=== PATIENT | female | born 1985 | race Caucasian/White ===

== ENCOUNTER → 2016-09-13 | Outpatient (CLI) | payer OTHER ==
[~2016-09-13] MED LIST: AMOXICILLIN500 M2 PO; AMOXICILLIN500 M3 PO; AMOXICILLIN500 MG PO; ANTIBIOTIC O500 U/GM TP; APAP/HYDROCODONE5 ML PO; AUGMENTIN 875 M1 TAB PO; AUGMENTIN 875875 MG PO; BACTRIM DS 8001 TA1 PO; BACTRIM DS 8001 TAB PO; BENTYL10 MG PO; CELEXA PO; CELEXA10 MG PO; CELEXA20 MG PO; CEPHALEXIN500 M1 PO; CEPHALEXIN500 MG PO; CIPRO250 MG PO; CIPROFLOXACIN500 MG PO; CLARITIN-D 12 H1 TAB PO; CLARITIN10 MG PO; DECADRON4 MG PO; DIFLUCAN150 MG PO; DOXYCYCLINE HY100 M3 PO; FLAGYL500 MG PO; FLEXERIL10 MG PO; FLONASE 0.05% 121 EA NAS; FLONASE ALLERG9.9 ML NAS; HYDROCODONE BIT1 T11 PO; HYDROXYZINE PAM50 MG PO; KEFLEX500 M1 PO; KEFLEX500 MG PO; KEFTAB500 MG PO; LEVAQUIN750 M1 PO; LEVOFLOXACIN500 MG PO; LOMOTIL 0.025 M1 TA1 PO; MACROBID100 M1 PO; MIRALAX POWDER17 G1 PO; MOTRIN600 MG PO; MOTRIN800 MG; MOTRIN800 MG PO; Motrin,Rufen400 MG PO; Motrin,Rufen800 MG PO; NAPROSYN500 MG PO; NO DAILY MEDS; NORCO 325 MG-51 TAB PO; NORCO 5-325 TA1 EACH PO; OMEPRAZOLE MAGN20 MG PO; PARAFON FORTE500 MG PO; PEN-VK500 MG PO; PEPCID20 MG PO; PERCOCET 325 MG1 TA7; PHENERGAN W/ DE30 ML PO; PREDNICOT10 MG PO; PREDNICOT20 MG PO; PREDNISONE10 MG PO; PREVACID30 M1 PO; PRILOSEC20 M1 PO; PRILOSEC20 M2 PO; PROAIR HFA8.5 GM INH; PROVENTIL0.09 MG/AC IH; PYRIDIUM200 M1 PO; PYRIDIUM200 MG PO; ROBITUSSIN AC 110 ML PO; Ranitidine Hyd150 MG PO; SERTRALINE HYDR50 MG PO; TESSALON PERLE200 MG PO; TOBREX OPHTH S2.5 ML OPH; TRAMADOL50 MG PO; TYLENOL325 M1 PO; ULTRAM50 MG PO; VIBRAMYCIN100 MG PO; VOLTAREN50 M1 PO; XANAX0.25 MG PO; ZANTAC 150150 MG PO; ZITHROMAX Z PA250 MG PO; ZITHROMAX Z-PA250 MG PO; ZOFRAN ODT4 MG SL; ZOFRAN4 MG PO; ZOLOFT50 MG PO; ZYRTEC10 MG PO; Zofran4 MG PO
[2016-09-13 11:01] LABS: BASO % 0.5 % (0.0-1.0); EOS # 0.1 10*3/uL (0.0-0.4); EOS % 1.5 % (1.0-4.0); HEMATOCRIT 39.7 % (37.0-47.0); HEMOGLOBIN 13.5 g/dl (12.0-16.0); LYMPH # 1.2 10*3/uL (1.3-4.4); LYMPH % 30.2 % (27.0-41.0); MEAN CELL VOLUME 89.4 fl (81.0-99.0); MEAN CORPUSCULAR HGB 30.4 pg (27.0-31.0); MEAN PLATELET VOLUME 10.5 fl (9.6-12.3); MONO # 0.3 10*3/uL (0.1-1.0); NEUT # 2.4 10*3/uL (2.3-7.9); NEUT % 59.6 % (47.0-73.0); PLATELET COUNT AUTOMATED 184 10*3/uL (130-400); RED BLOOD COUNT 4.44 10*6/uL (4.10-5.10); RED CELL DISTRI WIDTH 12.2 % (0-14.5)
== END | disposition home or self-care (01) ==
LOC: LAB 09:24
PROVIDERS: Obstetrics & Gynecology
DX: D06.9 Carcinoma in situ of cervix, unspecified (principal)

== ENCOUNTER → 2016-09-19 | Day surgery (SDC) | payer OTHER ==
[~2016-09-19] VITALS: Ht 157.4 cm; Wt 72.6 kg
--- NOTE | ~2016-09-19 | O ---
[place], [place] OPERATIVE NOTE NAME: BHAVESH SPRING UNIT #: [id number] ROOM: DOCTOR: INGE LUND MD BIRTHDATE: [birth year] DOS: 09/19/2016 PREOPERATIVE DIAGNOSIS: Ectocervical cervical intraepithelial neoplasia 3. POSTOPERATIVE DIAGNOSIS: Ectocervical cervical intraepithelial neoplasia 3. OPERATION: Cold knife conization of the ectocervix cut at 12 o'clock. SURGEON: Inge Lund MD ANESTHESIA: MAC. ESTIMATED BLOOD LOSS: Minimal. REPLACEMENTS: IV fluids. COMPLICATIONS: There were no complications. CONDITION: The patient's condition to recovery was stable. OPERATIVE SUMMARY: The patient was taken to the operating room in supine position, MAC anesthesia, lithotomy position, prepped and draped in routine manner. Cervix was grasped, first injected in a circumferential manner with 1% lidocaine with epinephrine, followed by placement of [id number] 0 chromic sutures at 3 and 9 o'clock respectively. At that point, we then removed the cone-shaped portion of the ectocervix and cut at 12 o'clock. Once that was completed, Sturmdorf sutures were placed at 6 and 12 o'clock respectively. Good hemostasis was noted. A small plug of Surgicel dipped in Monsel's solution was placed in the cervical defect. The patient was cleaned off, taken out of lithotomy position, awakened and transferred to recovery in stable condition with stable vital signs, good hemostasis, stable sponge and instrument count. INGE LUND MD CM:OPRECORD:OPERATIVE NOTE [id number] SPEEDY LUND MD 09/21/16 1046 interface
--- NOTE | ~2016-09-19 | WRIGHTHP ---
[place], [place] PATIENT HISTORY AND PHYSICAL EXAM NAME: BHAVESH SPRING [facility] #: [id number] UNIT #: [id number] ROOM: DOCTOR: INGE ORTEGA MD BIRTHDATE: [birth year] DOS: DATE OF SURGERY: 09/19/2016. HISTORY OF PRESENT ILLNESS: A 30-year-old white female, 3, para 3, AB 0, status post tubal ligation, whose last period is questionable because she is on Depo-Provera due to extreme hypermenorrhea. She was seen on 08/09/2016 having had a recent colposcopy directed biopsy of the cervix at 12 o'clock consistent with LENARD 3. The patient was here to discuss cold knife conization as therapy because she had had a biopsy 6 months ago was consistent with LENARD 2. The patient also states that her mother is suffering from some form of metastatic cancer, and the patient thinks that it is metastatic from the cervix. As I said, the patient is having significant hypermenorrhea and actually desires hysterectomy, but I did advise the patient that we have to do the cold knife conization first to be sure that there is no invasive disease in the cervix and if there is no invasive disease and the patient would like to proceed at a later date with the LAVH or vaginal hysterectomy, I would be happy to accommodate that. Therefore, the risks, benefits, indications, potential complications, and alternatives of a cold knife conization of the ectocervix were given, understanding stated, and she did sign a consent. PAST MEDICAL HISTORY: Reveals a history of depression, history of PID, bacterial vaginosis infections, anxiety, suicidal tendencies, and interstitial cystitis. She also has obviously had the abnormal Paps in the past. She is status post tubal ligation. She has had 3 pregnancies and 3 vaginal deliveries. She has also had a cholecystectomy as well as a tubal. SOCIAL HISTORY: The patient does not smoke or drink. MEDICATIONS: She is at present not taking any medications. ALLERGIES: She does state an allergy to ASPIRIN, IVP DYE, TRAMADOL, and PREVACID. REVIEW OF SYSTEMS: The patient's review of system does indicate that the patient had a past history of drug abuse and alcohol abuse. She states that she has been clean for some time. The patient's 3 children do live with relatives. FAMILY HISTORY: Reveals her father with heart disease. Mother with the cancer either uterine or cervical cancer as we discussed above. Maternal grandfather with heart disease, diabetes and hypertension. Maternal grandmother is from hypertension and diabetes. PHYSICAL EXAMINATION: GENERAL: Reveals pleasant white female. She is 5 feet, 245 pounds, BMI is 26.5. VITAL SIGNS: Blood pressure is 122/78, and she is in no significant distress. HEENT: Grossly intact. NECK: Grossly intact. LUNGS: Grossly intact. [place], [place] PATIENT HISTORY AND PHYSICAL EXAM NAME: BHAVESH SPRING UNIT #: [id number] ROOM: DOCTOR: INGE ORTEGA MD BIRTHDATE: [birth year] CARDIAC: Grossly intact. BREAST: Grossly intact. ABDOMEN: Grossly intact. EXTREMITIES: Grossly intact. NEUROLOGIC: Grossly intact. GENITOURINARY: External genitalia, vagina normal. Cervix noted above and the last Pap was consistent with a low-grade NICOLAS, but serial biopsies have been discussed above. The uterus is anteverted and anteflexed, overall normal size and configuration, nontender, mobile. Adnexa negative. RECTAL: Deferred. ASSESSMENT: 1. The patient with progressively worsening cervical dysplasia, now with LENARD 3 at 12 o'clock position. 2. She has a family history of her mother having either metastatic cervical cancer or uterine cancer. 3. The patient has hypermenorrhea and is having to use Depo-Provera to try to help control this and this is only partially effective in a patient who has already had a tubal ligation. To that end, the patient on 09/19/2016 will undergo cold knife conization of the ectocervix to rule out invasion of any sort in the cervix and if this is negative then she may consider a total vaginal hysterectomy or an laparoscopically-assisted vaginal hysterectomy for reasons of the cervical disease as well as the extreme hypermenorrhea, status post tubal ligation. INGE ORTEGA MD CM:HISPHYS:PATIENT HISTORY AND PHYSICAL EXAMINATION [id number] INGE ORTEGA MD 09/15/16 0757 interface
[2016-09-19 09:20] VITALS: BP 115/75
[2016-09-19 11:10] VITALS: BP 104/57
[2016-09-19 11:24] VITALS: BP 108/70
[2016-09-19 11:45] VITALS: BP 109/78
== END | disposition home or self-care (01) ==
LOC: SDC 09-13 09:30
DX: D06.1 Carcinoma in situ of exocervix (principal); Z98.51 Tubal ligation status; F32.9 Major depressive disorder, single episode, unspecified; F41.9 Anxiety disorder, unspecified; R45.851 Suicidal ideations; Z82.49 Family history of ischemic heart disease and other diseases of the circulatory system; Z80.9 Family history of malignant neoplasm, unspecified; Z83.3 Family history of diabetes mellitus; Z82.3 Family history of stroke

== ENCOUNTER 2016-09-25 16:17 | Emergency (ER) | payer OTHER ==
[~2016-09-25] VITALS: Ht 157.4 cm; Wt 72.6 kg
[~2016-09-25 16:17] MED LIST changes: -LEVAQUIN750 M1 PO
[2016-09-25 16:47] LABS: BASO % 0.2 % (0.0-1.0); EOS # 0.1 10*3/uL (0.0-0.4); EOS % 1.3 % (1.0-4.0); HEMATOCRIT 40.7 % (37.0-47.0); HEMOGLOBIN 13.6 g/dl (12.0-16.0); LYMPH # 0.8 10*3/uL (1.3-4.4); LYMPH % 15.4 % (27.0-41.0); MEAN CELL VOLUME 88.9 fl (81.0-99.0); MEAN CORPUSCULAR HGB 29.7 pg (27.0-31.0); MEAN CORPUSCULAR HGB CONC 33.4 g/dl (33.0-37.0); MEAN PLATELET VOLUME 9.8 fl (9.6-12.3); MONO # 0.5 10*3/uL (0.1-1.0); MONO % 8.3 % (3.0-9.0); NEUT # 4.1 10*3/uL (2.3-7.9); NEUT % 74.6 % (47.0-73.0); PLATELET COUNT AUTOMATED 192 10*3/uL (130-400); RED BLOOD COUNT 4.58 10*6/uL (4.10-5.10); RED CELL DISTRI WIDTH 12.4 % (0-14.5); WHITE BLOOD COUNT 5.4 10*3/uL (4.8-10.8)
[2016-09-25 17:02] LABS: BILIRUBIN NEGATIVE (NEGATIVE); BLOOD 3+ (NEGATIVE); CLARITY SL CLOUDY (CLEAR); COLOR YELLOW (YELLOW); GLUCOSE NEGATIVE (NEGATIVE); KETONE TRACE (NEGATIVE); LEUKO ESTERASE 1+ (NEGATIVE); NITRITE NEGATIVE (NEGATIVE); PH 5.5 (5.0-9.0); PROTEIN TRACE (NEGATIVE); SPECIFIC GRAVITY >= 1.030 (1.005-1.030)
[2016-09-25 17:04] LABS: ALBUMIN 3.6 gm/dl (3.1-4.5); ALKALINE PHOSPHATASE 74 U/L (45-117); BILIRUBIN, TOTAL 0.5 mg/dl (0.2-1.0); BUN 13 mg/dl (7-24); CARBON DIOXIDE 29 mmol/L (21-32); CHLORIDE 103 mmol/L (98-107); EST GLOM FILT AFRICAN AMERICAN > 60 ml/min; GLUCOSE 108 mg/dL (65-99); POTASSIUM 4.1 mmol/L (3.5-5.1); SGOT/AST 28 IU/L (3-35); SGPT/ALT 85 U/L (12-78); SODIUM 140 mmol/L (136-145); TOTAL PROTEIN 7.2 gm/dL (6.4-8.2)
[2016-09-25 17:10] LABS: URINE REFLEX COMMENT YES (NO)
[2016-09-25] MEDS ORDERED: LEVAQUIN750 M1 PO (17:20)
[2016-09-25 21:27] LABS: BACTERIA 2+; EPITHELIAL CELLS TNTC; RBC TNTC rbc/hpf (0-2); WBC 0-2 wbc/hpf (0-5)
== END 2016-09-25 18:03 | disposition home or self-care (01) ==
LOC: ED 16:17
PROVIDERS: Registered Nurse
DX: N76.0 Acute vaginitis (principal); N30.01 Acute cystitis with hematuria; R79.89 Other specified abnormal findings of blood chemistry; Z88.6 Allergy status to analgesic agent; Z88.1 Allergy status to other antibiotic agents; Z88.8 Allergy status to other drugs, medicaments and biological substances; Z91.041 Radiographic dye allergy status

== ENCOUNTER 2016-12-27 20:03 | Emergency (ER) | payer OTHER ==
[~2016-12-27] VITALS: Ht 157.4 cm; Wt 72.6 kg
[~2016-12-27 20:03] MED LIST changes: +LEVAQUIN750 M1 PO
[2016-12-27] MEDS ORDERED: ORPHENADRINE C100 M1 PO (22:06)
== END 2016-12-27 22:20 | disposition home or self-care (01) ==
LOC: ED 20:03
DX: M54.12 Radiculopathy, cervical region (principal); Z88.1 Allergy status to other antibiotic agents; Z88.6 Allergy status to analgesic agent; Z88.8 Allergy status to other drugs, medicaments and biological substances; Z91.041 Radiographic dye allergy status

== ENCOUNTER 2017-05-20 11:26 | Emergency (ER) | payer OTHER ==
[~2017-05-20] VITALS: Ht 157.4 cm; Wt 72.6 kg
[~2017-05-20 11:26] MED LIST changes: +ORPHENADRINE C100 M1 PO
[2017-05-20] MEDS ORDERED: FLONASE ALLERG9.9 ML NAS (11:51)
[2017-05-20] MEDS ORDERED: CLARITIN10 MG PO (11:51)
[2017-05-20] MEDS ORDERED: ROBITUSSIN DM 105 ML PO (11:51)
[2017-05-20] MEDS ORDERED: PREDNISONE10 MG PO (11:51)
== END 2017-05-20 13:09 | disposition home or self-care (01) ==
LOC: ED 11:26
DX: B34.9 Viral infection, unspecified (principal); K21.9 Gastro-esophageal reflux disease without esophagitis; R03.0 Elevated blood-pressure reading, without diagnosis of hypertension; Z90.49 Acquired absence of other specified parts of digestive tract; Z98.51 Tubal ligation status; Z91.041 Radiographic dye allergy status; Z88.6 Allergy status to analgesic agent; Z88.3 Allergy status to other anti-infective agents; Z88.8 Allergy status to other drugs, medicaments and biological substances

== ENCOUNTER 2017-05-31 00:20 | Emergency (ER) | payer OTHER ==
[~2017-05-31] VITALS: Ht 157.4 cm; Wt 72.6 kg
[~2017-05-31 00:20] MED LIST changes: +ROBITUSSIN DM 105 ML PO
[2017-05-31 01:04] LABS: BASO % 0.2 % (0.0-1.0); EOS # 0.1 10*3/uL (0.0-0.4); HEMATOCRIT 38.3 % (37.0-47.0); LYMPH # 1.9 10*3/uL (1.3-4.4); LYMPH % 21.7 % (27.0-41.0); MEAN CELL VOLUME 88.7 fl (81.0-99.0); MEAN CORPUSCULAR HGB 30.1 pg (27.0-31.0); MEAN CORPUSCULAR HGB CONC 33.9 g/dl (33.0-37.0); MEAN PLATELET VOLUME 9.5 fl (9.6-12.3); MONO # 0.8 10*3/uL (0.1-1.0); MONO % 8.5 % (3.0-9.0); NEUT # 6.1 10*3/uL (2.3-7.9); NEUT % 68.3 % (47.0-73.0); PLATELET COUNT AUTOMATED 223 10*3/uL (130-400); RED BLOOD COUNT 4.32 10*6/uL (4.10-5.10); RED CELL DISTRI WIDTH 12.4 % (0-14.5); WHITE BLOOD COUNT 8.9 10*3/uL (4.8-10.8)
[2017-05-31 01:20] LABS: BUN 10 mg/dl (7-24); CHLORIDE 105 mmol/L (98-107); CREATININE 0.85 mg/dL (0.55-1.02); POTASSIUM 4.1 mmol/L (3.5-5.1); SODIUM 139 mmol/L (136-145)
[2017-05-31 01:22] LABS: TROPONIN I < 0.015 ng/ml (<0.045)
== END 2017-05-31 02:23 | disposition home or self-care (01) ==
LOC: ED 00:20
PROVIDERS: Emergency Medicine Emergency Medical Services
DX: R07.89 Other chest pain (principal); R51 Headache; K21.9 Gastro-esophageal reflux disease without esophagitis; Z90.49 Acquired absence of other specified parts of digestive tract; Z98.51 Tubal ligation status; Z79.899 Other long term (current) drug therapy; Z91.041 Radiographic dye allergy status; Z88.6 Allergy status to analgesic agent; Z88.8 Allergy status to other drugs, medicaments and biological substances

== ENCOUNTER → 2017-06-05 | Outpatient (CLI) | payer OTHER | END | disposition home or self-care (01) | LOC: LAB 18:33 | PROVIDERS: Family Medicine | DX: G43.109 Migraine with aura, not intractable, without status migrainosus (principal) ==

== ENCOUNTER → 2018-01-16 | Outpatient (CLI) | payer OTHER | END | disposition home or self-care (01) | LOC: RAD 14:00 | DX: N23 Unspecified renal colic (principal); Z90.49 Acquired absence of other specified parts of digestive tract ==

== ENCOUNTER → 2018-05-09 | Outpatient (CLI) | payer OTHER ==
[2018-05-09 17:43] LABS: BILIRUBIN NEGATIVE (NEGATIVE); BLOOD NEGATIVE (NEGATIVE); CLARITY CLEAR (CLEAR); COLOR YELLOW (YELLOW); GLUCOSE NEGATIVE (NEGATIVE); KETONE NEGATIVE (NEGATIVE); LEUKO ESTERASE TRACE (NEGATIVE); NITRITE NEGATIVE (NEGATIVE); SPECIFIC GRAVITY <= 1.005 (1.005-1.030); UROBILINOGEN 0.2 E.U./dl (0.2-1.0)
[2018-05-09 17:55] LABS: RBC 0-2 rbc/hpf (0-2)
[2018-05-09 17:56] LABS: BACTERIA 2+; EPITHELIAL CELLS 15-20
== END | disposition home or self-care (01) ==
LOC: LAB 16:54 → US 17:00
PROVIDERS: Urology
DX: N39.0 Urinary tract infection, site not specified (principal)

== ENCOUNTER → 2019-01-03 | Outpatient (CLI) | payer OTHER ==
[2019-01-03 13:36] LABS: BASO % 0.3 % (0.0-1.0); EOS % 0.4 % (1.0-4.0); HEMATOCRIT 43.2 % (37.0-47.0); HEMOGLOBIN 14.8 g/dl (12.0-16.0); LYMPH # 1.1 10*3/uL (1.3-4.4); MEAN CELL VOLUME 91.5 fl (81.0-99.0); MEAN CORPUSCULAR HGB 31.4 pg (27.0-31.0); MEAN CORPUSCULAR HGB CONC 34.3 g/dl (33.0-37.0); MEAN PLATELET VOLUME 9.8 fl (9.6-12.3); MONO # 0.6 10*3/uL (0.1-1.0); MONO % 7.6 % (3.0-9.0); NEUT % 77.4 % (47.0-73.0); PLATELET COUNT AUTOMATED 275 10*3/uL (130-400); RED BLOOD COUNT 4.72 10*6/uL (4.10-5.10); RED CELL DISTRI WIDTH 12.8 % (0-14.5); WHITE BLOOD COUNT 7.8 10*3/uL (4.8-10.8)
[2019-01-03 14:00] LABS: ALBUMIN 3.9 gm/dl (3.1-4.5); ALKALINE PHOSPHATASE 62 U/L (45-117); BUN 11 mg/dl (7-24); CHLORIDE 107 mmol/L (98-107); CREATININE 1.06 mg/dL (0.55-1.02); FREE T4 1.27 ng/dl (0.76-1.46); POTASSIUM 3.7 mmol/L (3.5-5.1); SGOT/AST 16 IU/L (3-35); SGPT/ALT 29 U/L (12-78); SODIUM 141 mmol/L (136-145); TOTAL PROTEIN 7.3 gm/dL (6.4-8.2)
[2019-01-03 14:06] LABS: THYROID STIM HORMONE (HS) 0.791 uIU/ml (0.358-4.75)
== END | disposition home or self-care (01) ==
LOC: LAB 12:56
PROVIDERS: Family Medicine
DX: E88.81 Metabolic syndrome and other insulin resistance (principal)

== ENCOUNTER 2019-11-11 17:49 | Emergency (ER) | payer OTHER ==
[~2019-11-11] VITALS: Ht 157.4 cm; Wt 83.5 kg
[2019-11-11] MEDS ORDERED: POLYSPORIN OINT15 GM T (18:32)
[2019-11-11] MEDS ORDERED: NAPROSYN500 MG PO (18:32)
[2019-11-11] MEDS ORDERED: TYLENOL325 M1 PO (18:32)
== END 2019-11-11 19:06 | disposition home or self-care (01) ==
LOC: ED 17:49
DX: T23.132A Burn of first degree of multiple left fingers (nail), not including thumb, initial encounter (principal); T31.0 Burns involving less than 10% of body surface; K21.9 Gastro-esophageal reflux disease without esophagitis; Z88.6 Allergy status to analgesic agent; Z91.041 Radiographic dye allergy status; Z88.8 Allergy status to other drugs, medicaments and biological substances; X12.XXXA Contact with other hot fluids, initial encounter; Y93.G3 Activity, cooking and baking; Y92.89 Other specified places as the place of occurrence of the external cause; Y99.8 Other external cause status

== ENCOUNTER 2020-06-03 16:16 | Emergency (ER) | payer OTHER ==
[~2020-06-03] VITALS: Ht 160 cm; Wt 88.0 kg
[~2020-06-03 16:16] MED LIST changes: +POLYSPORIN OINT15 GM T
[2020-06-03] MEDS ORDERED: Tobrex Ophth S2.5 ML OPH (18:34)
[2020-06-03] MEDS ORDERED: AMOXICILLIN500 M2 PO (18:34)
[2020-06-03] MEDS ORDERED: CORTISPORIN SUS10 ML OT (18:38)
== END 2020-06-03 18:55 | disposition home or self-care (01) ==
LOC: ED 16:16
DX: H66.91 Otitis media, unspecified, right ear (principal); H60.91 Unspecified otitis externa, right ear; Z88.6 Allergy status to analgesic agent; Z91.041 Radiographic dye allergy status; Z88.8 Allergy status to other drugs, medicaments and biological substances

== ENCOUNTER 2020-06-05 20:07 | Emergency (ER) | payer OTHER ==
[~2020-06-05] VITALS: Wt 88.5 kg
[~2020-06-05 20:07] MED LIST changes: +CORTISPORIN SUS10 ML OT; +Tobrex Ophth S2.5 ML OPH
[2020-06-05] MEDS ORDERED: FLONASE ALLERG9.9 ML NAS (20:52)
[2020-06-05] MEDS ORDERED: ALLEGRA ALLERG180 M2 PO (20:52)
== END 2020-06-05 20:58 | disposition home or self-care (01) ==
LOC: ED 20:07
DX: J01.90 Acute sinusitis, unspecified (principal); F41.9 Anxiety disorder, unspecified; Z79.899 Other long term (current) drug therapy

== ENCOUNTER 2020-07-05 18:30 | Emergency (ER) | payer OTHER ==
[~2020-07-05 18:30] MED LIST changes: +ALLEGRA ALLERG180 M2 PO
== END 2020-07-05 20:06 | disposition home or self-care (01) ==
LOC: ED 18:30
DX: S93.402A Sprain of unspecified ligament of left ankle, initial encounter (principal); Z91.041 Radiographic dye allergy status; Z88.6 Allergy status to analgesic agent; Z88.8 Allergy status to other drugs, medicaments and biological substances; W10.8XXA Fall (on) (from) other stairs and steps, initial encounter; Y93.89 Activity, other specified; Y92.89 Other specified places as the place of occurrence of the external cause; Y99.8 Other external cause status

== ENCOUNTER 2020-10-25 13:23 | Emergency (ER) | payer OTHER ==
[~2020-10-25] VITALS: Ht 157.5 cm; Wt 87.1 kg
[2020-10-25] MEDS ORDERED: CYCLOBENZAPRINE10 MG PO (14:21)
== END 2020-10-25 14:26 | disposition home or self-care (01) ==
LOC: ED 13:23
DX: G57.01 Lesion of sciatic nerve, right lower limb (principal); F41.9 Anxiety disorder, unspecified; Z87.891 Personal history of nicotine dependence; Z91.041 Radiographic dye allergy status; Z88.5 Allergy status to narcotic agent; Z88.8 Allergy status to other drugs, medicaments and biological substances; Z79.899 Other long term (current) drug therapy; Z98.51 Tubal ligation status; Z90.49 Acquired absence of other specified parts of digestive tract; Z98.890 Other specified postprocedural states

== ENCOUNTER → 2021-10-20 | Outpatient (CLI) | payer OTHER ==
[~2021-10-20] MED LIST changes: +CYCLOBENZAPRINE10 MG PO
[2021-10-20 09:56] LABS: BASO % 0.4 % (0.0-1.0); EOS # 0.1 10*3/uL (0.0-0.4); LYMPH # 1.3 10*3/uL (1.3-4.4); LYMPH % 26.5 % (27.0-41.0); MEAN CELL VOLUME 88.4 fl (81.0-99.0); MEAN CORPUSCULAR HGB CONC 33.9 g/dl (33.0-37.0); MEAN PLATELET VOLUME 9.9 fl (9.6-12.3); MONO # 0.5 10*3/uL (0.1-1.0); MONO % 9.4 % (3.0-9.0); NEUT # 3.1 10*3/uL (2.3-7.9); NEUT % 62.5 % (47.0-73.0); PLATELET COUNT AUTOMATED 234 10*3/uL (130-400); RED BLOOD COUNT 4.64 10*6/uL (4.10-5.10); RED CELL DISTRI WIDTH 12.2 % (0-14.5)
[2021-10-20 10:17] LABS: ALBUMIN 3.6 gm/dl (3.1-4.5); ALKALINE PHOSPHATASE 59 U/L (45-117); BUN 9 mg/dl (7-24); CHLORIDE 108 mmol/L (98-107); CREATININE 0.91 mg/dL (0.55-1.02); FREE T4 1.13 ng/dl (0.76-1.46); POTASSIUM 4.5 mmol/L (3.5-5.1); SGOT/AST 25 IU/L (3-35); SGPT/ALT 36 U/L (12-78); SODIUM 138 mmol/L (136-145); TOTAL PROTEIN 6.9 gm/dL (6.4-8.2)
== END | disposition home or self-care (01) ==
LOC: LAB 09:37
PROVIDERS: ATTEND Family Medicine
DX: R53.1 Weakness (principal)

== ENCOUNTER 2021-11-22 19:05 | Emergency (ER) | payer OTHER ==
[~2021-11-22] VITALS: Ht 160 cm; Wt 81.6 kg
[~2021-11-22 19:05] MED LIST changes: -ANUSOL-HC25 MG R; -VITAMIN C500 M5 PO; -ZINC50 M3 PO
[2021-11-22] MEDS ORDERED: ZINC50 M3 PO (19:17)
[2021-11-22] MEDS ORDERED: VITAMIN C500 M5 PO (19:17)
[2021-11-22] MEDS ORDERED: ANUSOL-HC25 MG R (20:34)
== END 2021-11-22 19:37 | disposition home or self-care (01) ==
LOC: ED 19:05
DX: K64.4 Residual hemorrhoidal skin tags (principal); Z90.49 Acquired absence of other specified parts of digestive tract; Z98.890 Other specified postprocedural states; Z98.51 Tubal ligation status; Z91.041 Radiographic dye allergy status; Z88.6 Allergy status to analgesic agent; Z88.8 Allergy status to other drugs, medicaments and biological substances

== ENCOUNTER → 2021-11-22 | Outpatient (CLI) | payer OTHER ==
[~2021-11-22] MED LIST changes: +ANUSOL-HC25 MG R; +VITAMIN C500 M5 PO; +ZINC50 M3 PO
[2021-11-22 21:39] LABS: CHOLESTEROL 240 mg/dL (<200); LDL CHOLESTEROL 150 mg/dL (9-159); TRIGLYCERIDES 133 mg/dl (<150)
[2021-11-22 22:25] LABS: VITAMIN D, 25-HYDROXY 16.6 ng/mL (30-100)
== END | disposition home or self-care (01) ==
LOC: LAB 20:39
PROVIDERS: ATTEND Family Medicine
DX: R53.82 Chronic fatigue, unspecified (principal); E66.9 Obesity, unspecified; E55.9 Vitamin D deficiency, unspecified

== ENCOUNTER 2021-11-26 16:46 | Emergency (ER) | payer OTHER ==
[~2021-11-26] VITALS: Ht 157.4 cm; Wt 81.6 kg
[~2021-11-26 16:46] MED LIST changes: +ANUSOL-HC25 MG R; +VITAMIN C500 M5 PO; +ZINC50 M3 PO
[2021-11-26] MEDS ORDERED: MIRALAX POWDER17 G1 PO (17:12)
[2021-11-26] MEDS ORDERED: ANUSOL HC30 GM T (17:12)
[2021-11-26] MEDS ORDERED: EPSOM SALT454 G1 PO (17:13)
== END 2021-11-26 17:31 | disposition home or self-care (01) ==
LOC: ED 16:46
DX: K64.4 Residual hemorrhoidal skin tags (principal); Z91.041 Radiographic dye allergy status; Z88.8 Allergy status to other drugs, medicaments and biological substances; Z88.1 Allergy status to other antibiotic agents; Z79.899 Other long term (current) drug therapy; K21.9 Gastro-esophageal reflux disease without esophagitis; Z98.51 Tubal ligation status; Z90.49 Acquired absence of other specified parts of digestive tract; Z98.890 Other specified postprocedural states

== ENCOUNTER → 2022-01-10 | Outpatient (CLI) | payer OTHER ==
[~2022-01-10] MED LIST changes: +ANUSOL HC30 GM T; +EPSOM SALT454 G1 PO
== END | disposition home or self-care (01) ==
LOC: US 13:00
PROVIDERS: ATTEND Nurse Practitioner Women's Health
DX: N85.4 Malposition of uterus (principal); N83.02 Follicular cyst of left ovary; N83.01 Follicular cyst of right ovary

== ENCOUNTER 2022-04-17 15:28 | Emergency (ER) | payer OTHER ==
[~2022-04-17] VITALS: Wt 81.6 kg
[2022-04-17 16:55] LABS: BASO % 0.2 % (0.0-1.0); EOS % 0.6 % (1.0-4.0); LYMPH # 1.1 10*3/uL (1.3-4.4); LYMPH % 21.1 % (27.0-41.0); MEAN CELL VOLUME 88.6 fl (81.0-99.0); MEAN CORPUSCULAR HGB 30.2 pg (27.0-31.0); MEAN CORPUSCULAR HGB CONC 34.1 g/dl (33.0-37.0); MEAN PLATELET VOLUME 9.8 fl (9.6-12.3); MONO # 0.4 10*3/uL (0.1-1.0); MONO % 7.3 % (3.0-9.0); NEUT # 3.6 10*3/uL (2.3-7.9); NEUT % 70.6 % (47.0-73.0); PLATELET COUNT AUTOMATED 213 10*3/uL (130-400); RED CELL DISTRI WIDTH 12.3 % (0-14.5); WHITE BLOOD COUNT 5.1 10*3/uL (4.8-10.8)
[2022-04-17 17:13] LABS: ALKALINE PHOSPHATASE 61 U/L (45-117); BUN 11 mg/dl (7-24); CHLORIDE 110 mmol/L (98-107); CREATININE 0.95 mg/dL (0.55-1.02); LIPASE 116 U/L (73-393); SGOT/AST 16 IU/L (3-35); SGPT/ALT 24 U/L (12-78); SODIUM 141 mmol/L (136-145); TOTAL PROTEIN 6.6 gm/dL (6.4-8.2)
[2022-04-17 17:16] LABS: B-hCG (QUALITATIVE) NEGATIVE (NEGATIVE)
[2022-04-17] MEDS ORDERED: METRONIDAZOLE500 M1 PO ×2 (19:40→21:54)
[2022-04-17] MEDS ORDERED: CIPRO500 MG PO ×2 (19:40→21:54)
== END 2022-04-17 19:45 | disposition home or self-care (01) ==
LOC: ED 15:28
PROVIDERS: Physician Assistant
DX: N93.8 Other specified abnormal uterine and vaginal bleeding (principal); K52.89 Other specified noninfective gastroenteritis and colitis; Z79.899 Other long term (current) drug therapy; Z90.49 Acquired absence of other specified parts of digestive tract; Z98.51 Tubal ligation status; Z91.041 Radiographic dye allergy status; Z88.6 Allergy status to analgesic agent; Z88.8 Allergy status to other drugs, medicaments and biological substances

== ENCOUNTER 2022-08-21 12:40 | Emergency (ER) | payer OTHER ==
[~2022-08-21] VITALS: Ht 157.4 cm; Wt 77.1 kg
[~2022-08-21 12:40] MED LIST changes: +CIPRO500 MG PO; +METRONIDAZOLE500 M1 PO
[2022-08-21] MEDS ORDERED: PREDNISONE50 MG PO (14:59)
[2022-08-21] MEDS ORDERED: Orphenadrine C100 MG PO (15:00)
== END 2022-08-21 15:26 | disposition home or self-care (01) ==
LOC: ED 12:40
DX: S46.912A Strain of unspecified muscle, fascia and tendon at shoulder and upper arm level, left arm, initial encounter (principal); Z91.041 Radiographic dye allergy status; Z88.8 Allergy status to other drugs, medicaments and biological substances; Z88.1 Allergy status to other antibiotic agents; Z90.49 Acquired absence of other specified parts of digestive tract; Z98.51 Tubal ligation status; X58.XXXA Exposure to other specified factors, initial encounter; Y93.89 Activity, other specified; Y92.89 Other specified places as the place of occurrence of the external cause; Y99.8 Other external cause status

== ENCOUNTER 2023-02-18 20:53 | Emergency (ER) | payer OTHER ==
[~2023-02-18] VITALS: Ht 160 cm; Wt 83.9 kg
[~2023-02-18 20:53] MED LIST changes: +Orphenadrine C100 MG PO; +PREDNISONE50 MG PO
[2023-02-18] MEDS ORDERED: PROVENTIL HFA6.7 GM INH (21:23)
[2023-02-18] MEDS ORDERED: FLONASE ALLERG9.9 ML NAS (21:23)
[2023-02-18] MEDS ORDERED: PREDNISONE20 M1 PO (21:23)
== END 2023-02-18 21:45 | disposition home or self-care (01) ==
LOC: ED 20:53
DX: J06.9 Acute upper respiratory infection, unspecified (principal); R05.9 Cough, unspecified; R09.81 Nasal congestion; F41.9 Anxiety disorder, unspecified; Z91.041 Radiographic dye allergy status; Z88.6 Allergy status to analgesic agent; Z88.8 Allergy status to other drugs, medicaments and biological substances; Z90.89 Acquired absence of other organs; Z98.51 Tubal ligation status; Z98.890 Other specified postprocedural states

== ENCOUNTER 2023-02-20 21:17 | Emergency (ER) | payer OTHER ==
[~2023-02-20] VITALS: Ht 160 cm; Wt 83.9 kg
[~2023-02-20 21:17] MED LIST changes: +PREDNISONE20 M1 PO; +PROVENTIL HFA6.7 GM INH
[2023-02-20 22:11] LABS: BASO % 0.4 % (0.0-1.0); EOS # 0.2 10*3/uL (0.0-0.4); EOS % 1.6 % (1.0-4.0); HEMATOCRIT 38.5 % (37.0-47.0); LYMPH # 1.7 10*3/uL (1.3-4.4); LYMPH % 15.7 % (27.0-41.0); MEAN CELL VOLUME 88.5 fl (81.0-99.0); MEAN CORPUSCULAR HGB 30.3 pg (27.0-31.0); MEAN CORPUSCULAR HGB CONC 34.3 g/dl (33.0-37.0); MONO # 0.7 10*3/uL (0.1-1.0); MONO % 6.9 % (3.0-9.0); NEUT # 8.1 10*3/uL (2.3-7.9); NEUT % 75.1 % (47.0-73.0); PLATELET COUNT AUTOMATED 246 10*3/uL (130-400); RED BLOOD COUNT 4.35 10*6/uL (4.10-5.10); RED CELL DISTRI WIDTH 12.3 % (0-14.5); WHITE BLOOD COUNT 10.8 10*3/uL (4.8-10.8)
[2023-02-20 22:22] LABS: ACT PARTIAL THROMBO TIME 27.2 SECONDS (20.0-32.1); INTERNATIONAL NORM RATIO 0.9 (2.0-3.5)
[2023-02-20 22:29] LABS: ALKALINE PHOSPHATASE 89 U/L (46-116); BUN 14 mg/dl (9-23); CHLORIDE 110 mmol/L (98-107); LIPASE 34 U/L (12-53); POTASSIUM 3.3 mmol/L (3.4-5.1); SGPT/ALT 71 U/L (10-49); TOTAL PROTEIN 6.5 gm/dL (6.0-8.0)
[2023-02-20] MEDS ORDERED: LEVOFLOXACIN750 M2 PO (23:17)
[2023-02-20] MEDS ORDERED: METRONIDAZOLE500 M1 PO (23:17)
== END 2023-02-20 23:35 | disposition home or self-care (01) ==
LOC: ED 21:17
PROVIDERS: Emergency Medicine
DX: K52.9 Noninfective gastroenteritis and colitis, unspecified (principal); J18.9 Pneumonia, unspecified organism; F41.9 Anxiety disorder, unspecified; Z91.041 Radiographic dye allergy status; Z88.6 Allergy status to analgesic agent; Z88.8 Allergy status to other drugs, medicaments and biological substances; Z90.49 Acquired absence of other specified parts of digestive tract; Z98.51 Tubal ligation status; Z98.890 Other specified postprocedural states

== ENCOUNTER → 2023-05-05 | Outpatient (CLI) | payer OTHER ==
[~2023-05-05] MED LIST changes: +LEVOFLOXACIN750 M2 PO
== END | disposition home or self-care (01) ==
LOC: US 12:27
PROVIDERS: ATTEND Nurse Practitioner Women's Health
DX: N85.8 Other specified noninflammatory disorders of uterus (principal); N94.89 Other specified conditions associated with female genital organs and menstrual cycle

== ENCOUNTER → 2024-05-29 | Outpatient (CLI) | payer OTHER ==
[2024-05-29 11:38] LABS: BASO % 0.3 % (0.0-1.0); EOS # 0.1 10*3/uL (0.0-0.4); EOS % 1.1 % (1.0-4.0); HEMATOCRIT 42.4 % (37.0-47.0); LYMPH # 1.4 10*3/uL (1.3-4.4); MEAN CELL VOLUME 88.3 fl (81.0-99.0); MEAN CORPUSCULAR HGB 30.6 pg (27.0-31.0); MEAN CORPUSCULAR HGB CONC 34.7 g/dl (33.0-37.0); MEAN PLATELET VOLUME 9.8 fl (9.6-12.3); MONO # 0.5 10*3/uL (0.1-1.0); MONO % 7.3 % (3.0-9.0); NEUT # 4.6 10*3/uL (2.3-7.9); PLATELET COUNT AUTOMATED 227 10*3/uL (130-400); RED CELL DISTRI WIDTH 12.5 % (0-14.5); WHITE BLOOD COUNT 6.6 10*3/uL (4.8-10.8)
[2024-05-29 12:25] LABS: ALKALINE PHOSPHATASE 68 U/L (46-116); BUN 6 mg/dl (9-23); CHLORIDE 106 mmol/L (98-107); CHOLESTEROL 232 mg/dL (<200); LDL CHOLESTEROL 152 mg/dL (9-159); POTASSIUM 4.3 mmol/L (3.4-5.1); SGPT/ALT 20 U/L (5-49); TOTAL PROTEIN 7.1 gm/dL (6.0-8.0); TRIGLYCERIDES 112 mg/dl (<150)
== END | disposition home or self-care (01) ==
LOC: LAB 11:22
PROVIDERS: ATTEND Internal Medicine
DX: R42 Dizziness and giddiness (principal); E78.00 Pure hypercholesterolemia, unspecified; H54.7 Unspecified visual loss

== ENCOUNTER → 2024-05-30 | Outpatient (CLI) | payer OTHER | END | disposition home or self-care (01) | LOC: US 14:41 | PROVIDERS: ATTEND Internal Medicine | DX: H54.7 Unspecified visual loss (principal); R51.9 Headache, unspecified; R42 Dizziness and giddiness ==

== ENCOUNTER → 2024-06-27 | Outpatient (CLI) | payer OTHER | END | disposition home or self-care (01) | LOC: MRI 00:32 | PROVIDERS: ATTEND Internal Medicine | DX: H54.7 Unspecified visual loss (principal) ==

== ENCOUNTER 2024-08-23 18:26 | Emergency (ER) | payer OTHER ==
[~2024-08-23] VITALS: Ht 157.4 cm; Wt 84.8 kg
[2024-08-23] MEDS ORDERED: AMOX-CLAV 875-1 EACH PO (19:12)
[2024-08-23] MEDS ORDERED: AVPAK AZITHROM250 M1 PO (19:12)
[2024-08-23] MEDS ORDERED: VITAMIN C250 M2 PO (19:13)
[2024-08-23] MEDS ORDERED: VITAMIN D350 MC2 PO (19:13)
[2024-08-23] MEDS ORDERED: NAPROSYN500 MG PO (19:15)
[2024-08-23] MEDS ORDERED: OMNICEF300 MG PO (19:15)
[2024-08-23] MEDS ORDERED: CEFDINIR 300 MG CAP PO ONE (19:20)
[2024-08-23] MEDS ORDERED: Ketorolac Tromethamine 60 MG/2 ML VIAL IM ONE (19:20)
== END 2024-08-23 19:29 | disposition home or self-care (01) ==
LOC: ED 18:26
DX: H66.93 Otitis media, unspecified, bilateral (principal); T36.3X5A Adverse effect of macrolides, initial encounter; F41.9 Anxiety disorder, unspecified; K21.9 Gastro-esophageal reflux disease without esophagitis; R19.7 Diarrhea, unspecified; Z88.1 Allergy status to other antibiotic agents; Z91.041 Radiographic dye allergy status; Z88.5 Allergy status to narcotic agent; Z88.6 Allergy status to analgesic agent; Z90.49 Acquired absence of other specified parts of digestive tract; Z98.51 Tubal ligation status; Z98.890 Other specified postprocedural states; Y92.89 Other specified places as the place of occurrence of the external cause

== ENCOUNTER 2024-12-09 17:38 | Emergency (ER) | payer OTHER ==
[~2024-12-09] VITALS: Ht 157.4 cm; Wt 81.6 kg
[~2024-12-09 17:38] MED LIST changes: +AMOX-CLAV 875-1 EACH PO; +AVPAK AZITHROM250 M1 PO; +OMNICEF300 MG PO; +VITAMIN C250 M2 PO; +VITAMIN D350 MC2 PO
[2024-12-09] MEDS ORDERED: SEPTDS PO (18:00)
== END 2024-12-09 18:04 | disposition home or self-care (01) ==
LOC: ED 17:38
DX: S71.152A Open bite, left thigh, initial encounter (principal); L03.116 Cellulitis of left lower limb; Z91.041 Radiographic dye allergy status; Z88.1 Allergy status to other antibiotic agents; Z88.6 Allergy status to analgesic agent; Z88.8 Allergy status to other drugs, medicaments and biological substances; Z79.2 Long term (current) use of antibiotics; Z79.899 Other long term (current) drug therapy; Z90.49 Acquired absence of other specified parts of digestive tract; W57.XXXA Bitten or stung by nonvenomous insect and other nonvenomous arthropods, initial encounter; Y93.89 Activity, other specified; Y92.89 Other specified places as the place of occurrence of the external cause; Y99.8 Other external cause status

== ENCOUNTER → 2025-01-29 | Outpatient (CLI) | payer OTHER ==
[~2025-01-29] MED LIST changes: +SEPTDS PO
== END | disposition home or self-care (01) ==
LOC: LAB 00:52
PROVIDERS: ATTEND Obstetrics & Gynecology
DX: N95.1 Menopausal and female climacteric states (principal)

== ENCOUNTER → 2025-04-04 | Outpatient (CLI) | payer OTHER | END | disposition home or self-care (01) | LOC: US 10:20 | PROVIDERS: ATTEND Nurse Practitioner Women's Health | DX: R10.2 Pelvic and perineal pain (principal); N94.10 Unspecified dyspareunia ==